=== PATIENT | female | born 1985 | race Caucasian/White ===

== ENCOUNTER 2016-05-27 19:55 | Emergency (ER) | payer OTHER ==
[~2016-05-27] VITALS: Ht 172.7 cm; Wt 63.6 kg
[~2016-05-27 19:55] MED LIST: CLIN-78 PO; HYDR-4003 PO
[2016-05-27 19:59] VITALS: BP 123/80; PULSE 89; RESP 16; O2SAT 96
[2016-05-27 21:05] LABS: EOSINOPHILS % (AUTO) 4.1 % (0-5); Mean Corpuscular Hemoglobin 26.5 pg (27.0-35.0); Mean Corpuscular Volume 81.4 fL (81-100); NEUTROPHILS % (AUTO) 53.9 % (40-74); Platelet Count 306 bil/L (150-400)
== END 2016-05-27 20:40 | disposition left against medical advice (07) ==
LOC: SED 19:55
DX: R05 Cough (principal); Z53.21 Procedure and treatment not carried out due to patient leaving prior to being seen by health care provider

== ENCOUNTER 2016-05-28 01:41 | Emergency (ER) | payer OTHER ==
[~2016-05-28] VITALS: Ht 172.7 cm; Wt 63.6 kg
[2016-05-28 01:43] VITALS: BP 108/72; PULSE 63; RESP 20; O2SAT 97
--- NOTE | 2016-05-28 01:45 | ED.REPORT ---
HPI-Abd Pain F Under 40 Date of Service May 28, 2016 ED Provider: Dr. Quiles. A homeless 30 year old female presents to the ED complaining of chest pain onset a couple of weeks ago. The patient describes the pain as her heart feeing strange. The patient denies that the symptoms have caused any loss of activity or SOB. The patient reports that they feel like they are in danger in the world. She denies drinking alcohol or using any drugs today. She denies any history of heart conditions. Per nurse note, the patient has had cough and fever for the last couple of days. Nursing Notes Stated Complaint: FEELS STRANGE/COUGH/FEVER Chief Complaint: Female Abdominal Pain Nursing Notes Reviewed: Yes Allergies: Coded Allergies: amoxicillin (Verified Allergy, Severe, hives, 10/27/15) clavulanic acid (Verified Allergy, Severe, hives, 10/27/15) ketorolac (Verified Allergy, Severe, hives, 10/27/15) Scheduled PRN Clindamycin (Clindamycin) 300 Mg Capsule 300 MG PO QID PRN PRN tid Hydrocodone-Acetaminophen 5-325 mg (Hydrocodone-Acetaminophen 5-325 mg) 1 Each Tablet 1 TABLET PO Q4H PRN PRN For Pain General Time Seen by MD: 01:44 Chief Complaint Other (chest pain) Hx Obtained From: Patient Sudden in Onset?: No Onset Occurred: More than a week ago... (a few weeks ago) Symptom Duration: Intermittent Recent Healthcare: No recent doctor visit Similar Sx Previous: No Past Medical History Past Medical History denies any Hx of heart conditions. Past Surgical History Reports: Cholecystectomy Smoking History Current Every Day Smoker Social History The patient reports that they do not have their own place to stay. Last night, she slept under some stairs. She does not report how long she has been homeless. Drug Use: Meth Other Social History: Homeless Ambulatory Status Independent Review of Systems Review of Systems Note: Denies loss of activity. Respiratory: Denies: Shortness of breath Cardiovascular: Reports: Chest pain (Heart feels strange) Complete sys rev & neg: except as marked. Physical Exam Initial Vital Signs Vital Signs (First) Date Time Temp Pulse Resp B/P Pulse Ox O2 Delivery O2 Flow Rate FiO2 05/28/16 01:43 36.3 63 20 108/72 97 Room Air Initial VS: Reviewed Head / Eyes: Atraumatic, Normocephalic, PERRL ENT: Mucous membranes moist, Conjunctiva normal Extremities: Vascular intact, No swelling Skin: Warm, Dry Neurologic: Alert, Oriented General/Constitutional: Awake, Alert Respiratory / Chest: Atraumatic, Breath sounds NL, Breath sounds = bilat, No respiratory distress, No rales, No rhonchi, No wheezing Cardiovascular: Heart rate NL, Regular rhythm, Heart sounds NL, No gallop, No murmurs, No rubs Abdomen: No guarding, No rebound Back: Atraumatic, Non-tender Head / Eyes: Normocephalic, PERRL, EOMI Interpretation & Diagnostics Lab Results Interpretation Test 05/27/16 20:57 Alcohols < 10mg/dL (0-10) ECG Interpretation ECG Interpretation: Rate is 68. Sinus rhythm. Time: 02:19 Interpreted by: ED physician Re-Eval/Medical Decision Med Decision/Clinical Course Med Decision/Clinical Course: 30-year-old presents nearly mute crying an exaggerated fashion on questioning. She denies being abused, but says she does not remember. She then falls silent refuses to answer questions. She intermittently falls silent and flutters her eye lids, but objects to having her eye open for examination. This is overtly feigned behavior and not seizure or other neurologic disturbance. I presented this set of facts to the DCR, who is quite familiar with her, and he was aware of the fact that she had presented multiple times at [facility] with this identical situation, and had been observed overnight on several occasions. No history of actual thought disorder other psychiatric diagnosis exists. She is known to be homeless, and is apparently using hospitals for longterm at night. These recent facts were disclosed to her and in offer made to secure lodging for her at [facility]. She is methamphetamine positive, and eligible for a substance abuse bed. Upon confrontation, she regained the ability to speak and was able to conduct a screening with crisis. They conducted screening and agreed to take her. She was provided with three Ativan tabs for nightly use when necessary, given as directed by staff. She is discharged via taxi To [facility]. Source of Hx: Old records Re-Evaluation/Progress #1: Time of Eval: 01:58 Re-Evaluation/Progress Note: Rechecked patient and explained normal blood test results. Re-Evaluation/Progress #2: Time of Eval: 03:27 Re-Evaluation/Progress Note: Rechecked patient and explained findings from consult with NEREIDA. Explained test results and plan for discharge. Explained the help can be given to arrange a longterm for the patient. Patient understands and agrees with the plan. Re-Evaluation/Progress #3: Time of Eval: 03:32 Re-Evaluation/Progress Note: Gave patient direct phone line with crisis care. Consultation #1: Call Returned at: 02:10 Note: Discussed patient case with NEREIDA Sotomayor who reports that the patient has shown up at [facility] several times with the same case. Jose reports that the patient has a history of not talking to healthcare providers when seen, spending the night, the patient getting up in the morning, leaving and saying that they are fine. Consultation #2: Call Returned at: 03:29 Note: Consulted with Crisis [facility] center who agrees to help the patient. Counseled Regarding: Diagnosis Discharge & Departure Shift Change Sign-Out Response to Therapy: Improved Primary Impression: Homelessness Additional Impressions: Methamphetamine abuse Malingering Disposition: Home Discharge Condition All VS Reviewed: Yes Condition: Improved Patient Instructions: Methamphetamine Abuse (ED) Additional Instructions: Go to crisis and cooperate with staff. Ativan if needed for meth related symptoms. Talk with social insurance adviser at crisis to deal with your homelessness issue and your drug use. Referrals: [facility] (PCP) Kem Attestation Portions of this note were transcribed by Maxi Martin. I, Dr. Quiles personally performed the history, physical exam and medical decision-making; I reviewed and confirmed the accuracy of the information in the transcribed note. Signed by: Kem Varela, 05/28/2016 0635. copies to: Alin Freeman MD May 28, 2016 01:45 Maxi Martin May 28, 2016 01:56
[2016-05-28 04:04] VITALS: BP 103/59; PULSE 72; RESP 14; O2SAT 97
[2016-05-28] MEDS ORDERED: _LORazepam 1 mg Tablet PO PRN (04:05)
== END 2016-05-28 04:20 | disposition home or self-care (01) ==
LOC: SED 01:41
DX: F15.10 Other stimulant abuse, uncomplicated (principal); Z59.0 Homelessness; Z76.5 Malingerer [conscious simulation]; F17.200 Nicotine dependence, unspecified, uncomplicated; Z88.1 Allergy status to other antibiotic agents; Z88.8 Allergy status to other drugs, medicaments and biological substances
CPT/HCPCS: 81025; 93005; 99284; G0480